=== PATIENT | female | born 1950 | race Hispanic/Latino ===

== ENCOUNTER 2016-08-26 13:20 | Emergency (ER) | payer OTHER ==
[~2016-08-26] VITALS: Ht 157.5 cm; Wt 115.0 kg
[~2016-08-26 13:20] MED LIST: ACET-1890 PO; CHOL500014 PO; ESOM40CA41 PO; HYDR25TA4 PO; marijuana
[2016-08-26 13:32] VITALS: BP 136/83; PULSE 80; RESP 16; O2SAT 98
[2016-08-26 14:20] LABS: BASOPHILS % (AUTO) 0.4 % (0-3); EOSINOPHILS % (AUTO) 2.7 % (0-5); MONOCYTES % (AUTO) 10.4 % (4-12); Mean Corpuscular Hemoglobin 26.3 pg (27.0-35.0); Platelet Count 283 bil/L (150-400)
[2016-08-26 14:43] LABS: Magnesium 1.9 mg/dL (1.6-2.6)
--- NOTE | 2016-08-26 15:12 | ED.REPORT ---
HPI-Abd Pain F 40 and Over Date of Service Aug 26, 2016 ED Provider: Michaela Rodgers MD The pt is a 65 y/o female w/ a hx of HTN, and heartburn presenting to the ED complaining of LLQ pain onset 12 days ago.She describes the pain as very severe , has had 6 episodes and had a bowel movement right after her last episode. The pt also reports nausea, chills, and dry heaving. She went to urgent care 12 days ago, had a CT taken and was told it was positive for infection. She was given antibiotics, which caused her to improve, but ran out two days ago and the pain has returned. Nursing Notes Stated Complaint: ABDOMINAL PAIN Chief Complaint: Female Abdominal Pain Nursing Notes Reviewed: Yes Allergies: Coded Allergies: TAPE (Verified Allergy, Intermediate, Rash, 08/26/16) lisinopril (Verified Allergy, Unknown, 08/26/16) SWELLING IN MOUTH shellfish derived (Verified Allergy, Unknown, 08/26/16) SWELLING IN MOUTH Scheduled Esomeprazole Magnesium (Nexium) 40 Mg Capsule.dr 40 MG PO DAILY Hydrochlorothiazide (Hydrochlorothiazide) 25 Mg Tablet 25 MG PO DAILY Miscellaneous Medications ([marijuana]) Acetaminophen (Tylenol) 325 Mg Tablet 325 MG PO Cholecalciferol (Vitamin D3) (Vitamin D) 5,000 Unit Tablet 5,000 UNIT PO General Time Seen by MD: 15:11 Chief Complaint Abdominal pain (LLQ) Hx Obtained From: Patient Arrived By: Walk-in Sudden in Onset?: Yes Onset Occurred: More than a week ago... (12 days ) Recent Healthcare: No recent hospitalization, Recent doctor visit Past Medical History Past Medical History Fibromyalgia HTN Heartburn Arthritis Past Surgical History R knee replacement Ectopic Smoking History Never Smoker Ambulatory Status Independent Review of Systems Dry heaving Constitutional: Reports: Chills GI: Reports: Abdominal pain (LLQ), Nausea Complete sys rev & neg: except as marked. Physical Exam Vital Signs Vital Signs (First) Date Time Temp Pulse Resp B/P Pulse Ox O2 Delivery O2 Flow Rate FiO2 08/26/16 13:32 37.0 80 16 136/83 98 Initial VS: Reviewed General/Constitutional: Awake, Alert Respiratory / Chest: Atraumatic, Breath sounds NL, Breath sounds = bilat, No respiratory distress, No rales, No rhonchi, No wheezing Cardiovascular: Heart rate NL, Regular rhythm, Heart sounds NL Abdomen: Atraumatic, Soft, Non-tender Back: Atraumatic, Full range of motion Head / Eyes: Atraumatic, Normocephalic ENT: Atraumatic, Airway patent Skin: Atraumatic, Color NL, No rash, Warm, Dry Neurologic: Oriented X3, Speech NL Psychiatric: Affect NL, Mood NL Interpretation & Diagnostics Lab Results Interpretation Result Diagram: 08/26/16 1400 08/26/16 1400 Test 08/26/16 14:00 White Blood Count 11.4th/mm3 (3.8-10.1) Red Blood Count 5.05mil/mm3 (3.90-5.20) Hemoglobin 13.3g/dL (12.0-15.6) Hematocrit 40.4% (35.0-46.0) Mean Corpuscular Volume 80.0fL (81-100) Mean Corpuscular Hemoglobin 26.3pg (27.0-35.0) Mean Corpuscular Hemoglobin Concent 32.9% (32.0-37.0) Red Cell Distribution Width 14.3% (12.3-15.4) Platelet Count 283bil/L (150-400) Neutrophils (%) (Auto) 64.0% (40-74) Lymphocytes (%) (Auto) 22.2% (14-46) Monocytes (%) (Auto) 10.4% (4-12) Eosinophils (%) (Auto) 2.7% (0-5) Basophils (%) (Auto) 0.4% (0-3) Sodium Level 137mEq/L (134-144) Potassium Level 3.2mEq/L (3.5-5.2) Chloride Level 97mEq/L (97-108) Carbon Dioxide Level 25mmol/L (18-29) Blood Urea Nitrogen 8mg/dL (8-27) Creatinine 0.53mg/dL (0.57-1.00) Estimat Glomerular Filtration Rate 166mL/min (>59) Glucose Level 132mg/dL (60-99) Calcium Level 9.5mg/dL (8.5-10.1) Magnesium Level 1.9mg/dL (1.6-2.6) Total Bilirubin 0.2mg/dL (0.0-1.2) Aspartate Amino Transf (AST/SGOT) 18U/L (0-50) Alanine Aminotransferase (ALT/SGPT) 12U/L (0-32) Alkaline Phosphatase 60U/L (25-165) Total Protein 8.1g/dL (6.4-8.4) Albumin 4.0g/dL (3.4-5.0) Lipase 36U/L (13-60) Hold Em Top Tube Received (Received) CT Abd / Pelvis Interpretation 08/14 results IMPRESSION: 1. Acute uncomplicated sigmoid diverticulitis. 2. Fatty infiltration of liver. 3. 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 Dictated by: Alex Hughes M.D. on 08/14/2016 at 12:17 Approved by: Alex Hughes M.D. on 08/14/2016 at 12:21 Study type: Abdom CT oral contrast Re-Eval/Medical Decision Source of Hx: Old records Re-Evaluation/Progress : Time of Eval: 16:07 Re-Evaluation/Progress Note: Discussed lab and radiology results. F/U instructions and RTER warnings given. All questions addressed. Counseled Regarding: Diagnosis, Lab results, Need for follow-up, When/why to return to ED Discharge & Departure Primary Impression: Abdominal pain Abdominal location: left lower quadrant Qualified Code: R10.32 - Left lower quadrant pain Disposition: Home Discharge Condition All VS Reviewed: Yes Condition: Stable Patient Instructions: Diverticulitis (DC) Additional Instructions: Thank you for coming in today. The severe pain that you had for about an hour is a bit puzzling. I am glad that it has completely resolved and you are having no pain at all right now. The fact that you have had normal bowel movements, had no fever, has no pain now and an normal abdominal exam is all very reassuring. I do not expect an abscess, recurrent diverticulitis, bowel obstruction or other surgical issue right now. Given that your bowel movements have been essentially normal I also am not concerned about antibiotic related diarrhea. I would recommend that you continue with your probiotics. If you get worse, develop a fever, worsening abdominal pain, are unable to pass gas or have a bowel movement please return to the emergency department. If that happens we likely would need to, again, recheck blood work and would probably repeat a CT scan of your abdomen at that time I hope you continue to heal. Referrals: Amy Canchola MD (PCP) Scribe Attestation Portions of this note were transcribed by Agapito Amezquita. I, Dr. Rodgers personally performed the history, physical exam and medical decision-making; I reviewed and confirmed the accuracy of the information in the transcribed note. Signed by : Khadijah Smith, 08/26/16 and [id number]. copies to: Amy Canchola MD, Shawna L MD Aug 26, 2016 15:12 Agapito Amezquita Aug 26, 2016 15:59
[2016-08-26 16:51] VITALS: BP 146/81; PULSE 102; RESP 22
== END 2016-08-26 16:45 | disposition home or self-care (01) ==
LOC: SED 13:20
DX: R10.32 Left lower quadrant pain (principal); R11.0 Nausea; R68.83 Chills (without fever); I10 Essential (primary) hypertension; Z88.8 Allergy status to other drugs, medicaments and biological substances; Z91.013 Allergy to seafood